=== PATIENT | male | born 1950 | race Caucasian/White ===

== ENCOUNTER 2018-06-22 14:49 | Emergency (ER) | payer OTHER ==
[~2018-06-22] VITALS: Ht 182.9 cm; Wt 81.6 kg
[~2018-06-22 14:49] MED LIST: ALPR1TAB7 PO; ANAS1TAB8 PO; HYDR-4354 PO; SMZ-TMP DS PO; TEST150G2 TD; [UNRECOGNIZED DRUG - OTHER]
[2018-06-22 15:25] LABS: *BILIRUBIN,URIN NEGATIVE (NEGATIVE); *BLOOD, URINE NEGATIVE (NEGATIVE); *CLARITY,URINE CLEAR (CLEAR); *COLOR,URINE YELLOW (YELLOW); *KETONES,URINE NEGATIVE (NEGATIVE); *PROTEIN,URINE NEGATIVE (NEGATIVE); *UROBILINOGEN,URINE 0.2 E.U./dl (NORMAL); LEUKOCYTE ESTERASE ,URINE NEGATIVE (NEGATIVE); NITRITE, URINE NEGATIVE (NEGATIVE); PH,URINE 5.5 (5.0-8.0); UGLUCOSE NEGATIVE (NEGATIVE)
[2018-06-22 15:33] LABS: MUCUS,URINE FEW /LPF (0-FEW); WBC,URINE 0-3 /HPF (0-3)
[2018-06-22] MEDS ORDERED: ONDANSETRON 4 MG/2 ML VIAL IV ONE (16:15)
[2018-06-22] MEDS ORDERED: IV NORMAL SALINE 1000 ML BAG IV ONE (16:15)
[2018-06-22 16:25] LABS: EOSINOPHILS # (AUTO) 0.1 K/uL (0.0-0.7); HEMATOCRIT 46.1 % (36.7-47.1); LYMPHOCYTES # (AUTO) 1.9 K/uL (20.0-40.0); MEAN CORPUSCULAR HGB CONC 36 g/dL (32.5-36.3); MONOCYTES # (AUTO) 0.4 K/uL (2.0-10.0); WHITE BLOOD COUNT (AUTO) 5.5 K/uL (3.6-10.2)
[2018-06-22 16:29] LABS: BASOPHILS % (AUTO) 0.7 % (0.0-2.0); EOSINOPHILS % (AUTO) 1.7 % (0.0-7.0); HEMOGLOBIN 16.3 g/dL (12.5-16.3); LYMPHOCYTES % (AUTO) 34.3 % (20.5-51.5); MEAN CORPUSCULAR HEMOGLOBIN 30.6 uug (23.8-33.4); MEAN CORPUSCULAR VOLUME 86.2 fL (73.0-96.2); MONOCYTES % (AUTO) 6.4 % (0.0-11.0); NEUTROPHILS # (AUTO) 3.2 K/uL (1.8-8.9); NEUTROPHILS % (AUTO) 56.9 % (38.5-71.5); PLATELET COUNT (AUTO) 175 K/uL (152-348); RED BLOOD CELL COUNT(AUTO) 5.34 MIL/uL (4.06-5.63)
[2018-06-22 16:36] LABS: POTASSIUM 4.4 mmol/L (3.5-5.1)
[2018-06-22] MEDS ORDERED: ONDANSETRON 4 MG/2 ML VIAL ONE (16:36)
[2018-06-22 16:42] LABS: BILIRUBIN,DIRECT 0.2 mg/dL (0.0-0.2); BILIRUBIN,TOTAL 1.2 mg/dL (0.2-1.0); TOTAL PROTEIN, SERUM 7.1 g/dL (6.4-8.2)
[2018-06-22] MEDS ORDERED: IV NORMAL SALINE 250 ML IV ONE (17:09)
[2018-06-22] MEDS ORDERED: NORMAL SALINE FLUSH 10 ML DISP.SYRIN ONE (17:09)
[2018-06-22] MEDS ORDERED: IOHEXOL 300MG/ML 100 ML INFUS..BTL ONE (17:09)
[2018-06-22] MEDS ORDERED: SWABABLE VALVE TRANSFER SET EA MC ONE (17:09)
--- NOTE | 2018-06-22 17:18 | NUR ---
Pt to CT, NAD noted.
--- NOTE | 2018-06-22 18:17 | NUR ---
Patient discharged to home in stable conditon. Written and verbal after care instructions given. Patient verbalizes understanding of instructions.
== END 2018-06-22 18:21 | disposition home or self-care (01) ==
LOC: ER 14:49
DX: G89.29 Other chronic pain (principal); M54.5 Low back pain; R10.9 Unspecified abdominal pain; Z88.5 Allergy status to narcotic agent; Z88.8 Allergy status to other drugs, medicaments and biological substances; Z79.2 Long term (current) use of antibiotics; Z79.899 Other long term (current) drug therapy
CPT/HCPCS: 36415; 74177; 80048; 80076; 81001; 85025; 96374; 99284; J2405; Q9967; A4663; J3490; J7030; J7050

== ENCOUNTER 2020-06-14 15:14 | Emergency (ER) | payer OTHER ==
[~2020-06-14] VITALS: Ht 180.3 cm; Wt 86.2 kg
[~2020-06-14 15:14] MED LIST changes: -ANAS1TAB8 PO; -SMZ-TMP DS PO; -[UNRECOGNIZED DRUG - OTHER]
--- NOTE | 2020-06-14 15:26 | NUR ---
Pt c/o midline ABD pain x 2 weeks, denies n/v/d but has softer stool. Pt taking prilosec OTC and getting small patches of redness and brownish raised spots. Also gets occasional bags and circles under his eyes. Pt denies CP, SOB, dizziness, n/v, no other complaints, no distress noted. Addendum: 06/14/20 at 1530 by ALANIS Pt also c/o frothy urine.
[2020-06-14 15:58] LABS: *BILIRUBIN,URIN NEGATIVE (NEGATIVE); *CLARITY,URINE CLEAR (CLEAR); *COLOR,URINE YELLOW (YELLOW); *KETONES,URINE NEGATIVE (NEGATIVE); *UROBILINOGEN,URINE 0.2 E.U./dl (NORMAL); LEUKOCYTE ESTERASE ,URINE NEGATIVE (NEGATIVE); NITRITE, URINE NEGATIVE (NEGATIVE); PH,URINE 5.5 (5.0-8.0); UGLUCOSE NEGATIVE (NEGATIVE)
[2020-06-14 16:02] LABS: BASOPHILS % (AUTO) 0.5 % (0.0-2.0); EOSINOPHILS # (AUTO) 0.1 K/uL (0.0-0.7); EOSINOPHILS % (AUTO) 1.3 % (0.0-7.0); HEMATOCRIT 47.6 % (36.7-47.1); HEMOGLOBIN 15.8 g/dL (12.5-16.3); LYMPHOCYTES # (AUTO) 1.9 K/uL (20.0-40.0); LYMPHOCYTES % (AUTO) 26.2 % (20.5-51.5); MEAN CORPUSCULAR HEMOGLOBIN 29.6 uug (23.8-33.4); MEAN CORPUSCULAR HGB CONC 33 g/dL (32.5-36.3); MEAN CORPUSCULAR VOLUME 89.1 fL (73.0-96.2); MONOCYTES # (AUTO) 0.6 K/uL (2.0-10.0); MONOCYTES % (AUTO) 7.9 % (0.0-11.0); NEUTROPHILS # (AUTO) 4.7 K/uL (1.8-8.9); NEUTROPHILS % (AUTO) 64.1 % (38.5-71.5); PLATELET COUNT (AUTO) 185 K/uL (152-348); RED BLOOD CELL COUNT(AUTO) 5.34 MIL/uL (4.06-5.63); WHITE BLOOD COUNT (AUTO) 7.3 K/uL (3.6-10.2)
[2020-06-14 16:02] LABS: *BLOOD, URINE TRACE INTACT (NEGATIVE)
[2020-06-14 16:10] LABS: CREATININE 0.9 mg/dL (0.6-1.3); POTASSIUM 4.1 mmol/L (3.5-5.1)
[2020-06-14 16:16] LABS: BILIRUBIN,DIRECT 0.4 mg/dL (0.0-0.2); BILIRUBIN,TOTAL 2.2 mg/dL (0.2-1.0)
--- NOTE | 2020-06-14 17:08 | NUR ---
Gave pt d/c instructions, pt verbalized understanding.
[2020-06-14 20:11] LABS: BACTERIA,URINE NONE SEEN /HPF (NONE SEEN); RBC,URINE 0-3 /HPF (0-3); SQUAMOUS EPITHELIAL CELL,UR NONE SEEN /HPF (NONE SEEN); WBC,URINE 0-3 /HPF (0-3)
== END 2020-06-14 17:13 | disposition home or self-care (01) ==
LOC: ER 15:14
DX: R10.11 Right upper quadrant pain (principal); R94.5 Abnormal results of liver function studies; Z96.651 Presence of right artificial knee joint; Z98.1 Arthrodesis status; N64.59 Other signs and symptoms in breast
CPT/HCPCS: 36415; 76642; 83690; 85025; A4663

== ENCOUNTER 2020-08-09 18:10 | Inpatient (IN) | payer MEDICARE ==
[~2020-08-09] VITALS: Ht 180.3 cm; Wt 89.4 kg
[2020-08-09] MEDS ORDERED: ACET-2605 PO (18:20)
[2020-08-09] MEDS ORDERED: HYDR-3980 PO (18:25)
[2020-08-09] MEDS ORDERED: ALPR1TAB7 PO (18:25)
[2020-08-09] MEDS ORDERED: TEST75GE TD (18:25)
[2020-08-09] MEDS ORDERED: HYDROMORPHONE 1 MG/1 ML DISP.SYRIN IV ONE (19:00)
[2020-08-09] MEDS ORDERED: ONDANSETRON 4 MG/2 ML VIAL IV ONE (19:00)
[2020-08-09] MEDS ORDERED: IV NORMAL SALINE 1000 ML BAG IV ONE (19:00)
--- NOTE | 2020-08-09 19:00 | NUR ---
RECEIVED PATIENT AWAKE , IV NS RUNNING BOLUS , NO DISTRESS
[2020-08-09 19:01] LABS: *BILIRUBIN,URIN NEGATIVE (NEGATIVE); *BLOOD, URINE NEGATIVE (NEGATIVE); *CLARITY,URINE CLEAR (CLEAR); *COLOR,URINE YELLOW (YELLOW); *KETONES,URINE NEGATIVE (NEGATIVE); *UROBILINOGEN,URINE 0.2 E.U./dl (NORMAL); LEUKOCYTE ESTERASE ,URINE NEGATIVE (NEGATIVE); NITRITE, URINE NEGATIVE (NEGATIVE); UGLUCOSE NEGATIVE (NEGATIVE)
[2020-08-09 19:12] LABS: BASOPHILS % (AUTO) 0.2 % (0.0-2.0); EOSINOPHILS % (AUTO) 0.3 % (0.0-7.0); HEMOGLOBIN 15.8 g/dL (12.5-16.3); LYMPHOCYTES # (AUTO) 1.4 K/uL (20.0-40.0); LYMPHOCYTES % (AUTO) 11.4 % (20.5-51.5); MEAN CORPUSCULAR HEMOGLOBIN 30.5 uug (23.8-33.4); MEAN CORPUSCULAR HGB CONC 34 g/dL (32.5-36.3); MEAN CORPUSCULAR VOLUME 88.5 fL (73.0-96.2); MONOCYTES # (AUTO) 0.6 K/uL (2.0-10.0); MONOCYTES % (AUTO) 5.2 % (0.0-11.0); NEUTROPHILS % (AUTO) 82.9 % (38.5-71.5); PLATELET COUNT (AUTO) 162 K/uL (152-348); WHITE BLOOD COUNT (AUTO) 12.1 K/uL (3.6-10.2)
[2020-08-09 19:19] LABS: CREATININE 1.2 mg/dL (0.6-1.3)
[2020-08-09 19:25] LABS: BILIRUBIN,DIRECT 0.3 mg/dL (0.0-0.2); BILIRUBIN,TOTAL 2.9 mg/dL (0.2-1.0); TOTAL PROTEIN, SERUM 6.7 g/dL (6.4-8.2)
[2020-08-09] MEDS ORDERED: HYDROMORPHONE 2 MG/1 ML DISP.SYRIN ONE (19:42)
[2020-08-09] MEDS ORDERED: ONDANSETRON 4 MG/2 ML VIAL ONE (19:42)
[2020-08-09] MEDS ORDERED: SWABABLE VALVE TRANSFER SET EA MC ONE (19:48)
[2020-08-09] MEDS ORDERED: IV NORMAL SALINE 250 ML IV ONE (19:48)
[2020-08-09] MEDS ORDERED: IOHEXOL 350 100 ML INFUS..BTL ONE (19:48)
--- NOTE | 2020-08-09 19:54 | NUR ---
PATIENT WAS TAKEN TO CT , DENIES PAIN OR DISTRESS AT THIS TIME
--- NOTE | 2020-08-09 20:03 | NUR ---
PATIENT IS STILL OUT TO CT , EKG NOT DONE YET
--- NOTE | 2020-08-09 20:18 | NUR ---
PATIENT BACK FROM CT , NO DISTRESS
--- NOTE | 2020-08-09 20:57 | NUR ---
ER MD spoke to surgery carton folder, Magdy. Patient to be admitted to tele and will have surgery tomorrow
--- NOTE | 2020-08-09 20:58 | NUR ---
Panel call to [facility] PLaced by DAIANA RIVERA
[2020-08-09] MEDS ORDERED: METRONIDAZOLE 500 MG/NS 100 ML PIGGYBACK IV ONE (21:00)
[2020-08-09] MEDS ORDERED: CEFTRIAXONE 1 G in IV DEXTROSE 5% 50 ML IV ONE (21:00)
--- NOTE | 2020-08-09 21:00 | NUR ---
DR BRICEÑO AT BEDSIDE TO EXPLAIN RESULTS OF CT SCAN
--- NOTE | 2020-08-09 21:03 | NUR ---
Admitting room 315 Tele
[2020-08-09] MEDS ORDERED: METRONIDAZOLE 500 MG/NS 100ML 100 ML IV ONE (21:06)
[2020-08-09] MEDS ORDERED: CEFTRIAXONE /D5W 50ML IVPB **ER PYXIS IV ONE (21:06)
[2020-08-09] MEDS ORDERED: Z GUARD REMEDY PASTE 57 GM TUBE TOP PRN (21:15)
[2020-08-09] MEDS ORDERED: ONDANSETRON 4 MG/2 ML VIAL IV PRN (21:15)
--- NOTE | 2020-08-09 21:26 | NUR ---
Report to Shanta CONTRERAS on tele Pt. admitted to tele under Dermick/Magdy Belongs List completed
--- NOTE | 2020-08-09 21:35 | NUR ---
Judith schuster in [facility] - 08/09/20 at 2155 by MANINDER MD An at patient bedside.
[2020-08-09] MEDS ORDERED: PIPERACILLIN SODIUM/TAZOBACTAM 4.5 G in IV DEXTROSE 5% 50 ML IV SCH (22:00)
--- NOTE | 2020-08-09 22:15 | NUR ---
Admitted a 69 years old patient with Dx of Perforated Colon. Pt AAOx4. In no acute distress. Denies any SOB. Mild abdominal pain at this time and tolerable without the need of pain medication at this time. IV site on right FA and left AC intact and patent. NPO status. NSR on tele at79/min. Routine admission care done. Plan of care initiated. Safety measure initiated and call vasquez within reached.
[2020-08-09] MEDS: IV NS 1000 ML 1,000 ML IV PRN (22:25)
[2020-08-09] MEDS ORDERED: LORAZEPAM 2 MG/1 ML VIAL IV ONE (23:00)
[2020-08-09] MEDS ORDERED: PIPERACILLIN/TAZO 4.5 GM VIAL IV ONE (23:39)
[2020-08-09] MEDS: PIPERACILLIN SODIUM/TAZOBACTAM 4.5 G in IV DEXTROSE 5% 50 ML IV SCH (23:50)
[2020-08-10 00:07] VITALS: BP 130/64
[2020-08-10] MEDS: MORPHINE SULFATE 2 MG/1 ML DISP.SYRIN IV PRN ×2 (01:13→05:49)
--- NOTE | 2020-08-10 01:50 | NUR ---
IC obtained from pt. for exploratory laparotomy. Patient procedure is scheduled for 729 per Pelt Dropper Caty.
[2020-08-10 04:00] VITALS: BP 103/53
[2020-08-10] MEDS: PIPERACILLIN SODIUM/TAZOBACTAM 4.5 G in IV DEXTROSE 5% 50 ML IV SCH (05:14)
--- NOTE | 2020-08-10 06:15 | NUR ---
RN Tayler from OR called, report given regarding patient current condition.
[2020-08-10] MEDS ORDERED: BUPIVACAINE 0.25% 30 ML VIAL ONE (06:34)
--- NOTE | 2020-08-10 06:48 | NUR ---
Pt remains AAOx4. In no acute distress. Morphine 1mg via IV given q4 hours PRN for complain of pain and effective. IVF infusing. No adverse effect noted from IV ABX. Maintained on NPO. Needs attended to and met. Safety measure maintained and call vasquez within reached. Awaiting for surgery today.
--- NOTE | 2020-08-10 07:00 | NUR ---
Patient picked up by 2 nurse and taken to OR for surgery (Ex lap).
[2020-08-10] MEDS ORDERED: POLYMYXIN B SULFATE 500,000 UNITS, BACITRACIN 50,000 UNITS, NORMAL SALINE 20 ML MC ONE (07:15)
[2020-08-10] MEDS ORDERED: MIDAZOLAM HCL 10 MG/2 ML VIAL ONE (07:26)
[2020-08-10 07:28] LABS: BILIRUBIN,TOTAL 3.3 mg/dL (0.2-1.0); CREATININE 1.1 mg/dL (0.6-1.3); MAGNESIUM 1.7 mg/dL (1.8-2.4); PHOSPHOROUS 3.7 mg/dL (2.5-4.9); POTASSIUM 3.8 mmol/L (3.5-5.1); TOTAL PROTEIN, SERUM 5.6 g/dL (6.4-8.2)
[2020-08-10 07:37] LABS: BASOPHILS % (AUTO) 0.2 % (0.0-2.0); EOSINOPHILS % (AUTO) 0.1 % (0.0-7.0); HEMOGLOBIN 14.1 g/dL (12.5-16.3); LYMPHOCYTES # (AUTO) 1.1 K/uL (20.0-40.0); LYMPHOCYTES % (AUTO) 15.2 % (20.5-51.5); MEAN CORPUSCULAR HEMOGLOBIN 30.3 uug (23.8-33.4); MEAN CORPUSCULAR HGB CONC 34 g/dL (32.5-36.3); MEAN CORPUSCULAR VOLUME 90.1 fL (73.0-96.2); MONOCYTES # (AUTO) 0.4 K/uL (2.0-10.0); MONOCYTES % (AUTO) 5.9 % (0.0-11.0); NEUTROPHILS # (AUTO) 5.7 K/uL (1.8-8.9); NEUTROPHILS % (AUTO) 78.6 % (38.5-71.5); PLATELET COUNT (AUTO) 147 K/uL (152-348); RED BLOOD CELL COUNT(AUTO) 4.65 MIL/uL (4.06-5.63); WHITE BLOOD COUNT (AUTO) 7.2 K/uL (3.6-10.2)
[2020-08-10] MEDS ORDERED: METRONIDAZOLE 500 MG/NS 100 ML PIGGYBACK IV ONE (07:58)
[2020-08-10] MEDS: PANTOPRAZOLE SODIUM 40 MG VIAL IV SCH (09:00)
[2020-08-10] MEDS ORDERED: KETOROLAC TROMETHAMINE 30 MG INJ ONE (09:55)
[2020-08-10] MEDS ORDERED: FENTANYL CITRATE 100 MCG/2 ML AMPUL ONE (09:55)
[2020-08-10] MEDS ORDERED: MORPHINE SULFATE 2 MG/1 ML DISP.SYRIN IV PRN (11:15)
--- NOTE | 2020-08-10 11:15 | NUR ---
PATIENT RETURNED POST-SURGERY. AAOx4. COMPLAINTS OF PAIN, GIVEN PRN PAIN MEDICATION. VSS. INCISION SITE CLEAN, DRY AND INTACT. CHAHAL CATHETER DRAINING AND PATENT. IV FLUIDS STARTED PER ORDER. WILL CONTINUE TO MONITOR.
[2020-08-10] MEDS: MAGNESIUM SULFATE/D5W 100 ML IV SCH ×2 (11:28→12:24)
[2020-08-10] MEDS: IV NS 1000 ML 1,000 ML IV PRN ×2 (11:30→23:29)
[2020-08-10 11:51] VITALS: BP 129/59
[2020-08-10] MEDS: METOCLOPRAMIDE HCL 10 MG/2 ML VIAL IV SCH ×3 (12:13→23:20)
--- NOTE | 2020-08-10 13:26 | NUR ---
PER PATIENT REQUEST, CHAHAL CATHETER DISCONTINUED. WILL MONITOR IF PATIENT IS ABLE TO VOID. MD AWARE.
[2020-08-10] MEDS ORDERED: DEXAMETHASONE SOD PHOSPHATE 4 MG INJ IV ONE (13:47)
[2020-08-10] MEDS ORDERED: CEFAZOLIN 1 G VIAL MC ONE (13:47)
[2020-08-10] MEDS ORDERED: GLYCOPYRROLATE 0.2 MG/ML VIAL IM ONE (13:47)
[2020-08-10] MEDS ORDERED: PROPOFOL 200 MG/20 ML BOTTLE IV ONE (13:47)
[2020-08-10] MEDS ORDERED: ONDANSETRON 4 MG/2 ML VIAL IV ONE (13:47)
[2020-08-10] MEDS ORDERED: LIDOCAINE-MPF 2% 5 ML VIAL MC ONE (13:47)
[2020-08-10] MEDS ORDERED: VECURONIUM BROMIDE 10 MG VIAL IV ONE ×2 (13:47)
[2020-08-10] MEDS ORDERED: SEVOFLURANE 250 ML BOTTLE IH ONE (13:47)
[2020-08-10] MEDS ORDERED: PIPERACILLIN SODIUM/TAZOBACTAM 3.37 G in IV DEXTROSE 5% 100 ML IV SCH (14:00)
[2020-08-10] MEDS: CEFAZOLIN 1 G in IV DEXTROSE 5% 50 ML IV SCH ×2 (15:11→22:30)
[2020-08-10 16:00] VITALS: BP 134/64
[2020-08-10] MEDS: METRONIDAZOLE 500 MG/NS 100ML 500 MG in PREMIXED 1 EACH IV SCH ×2 (16:09→23:20)
[2020-08-10] MEDS: HYDROMORPHONE 2 MG/1 ML DISP.SYRIN IV PRN ×2 (17:23→22:12)
[2020-08-10 20:00] VITALS: BP 115/60
[2020-08-11 00:25] VITALS: BP 107/53
[2020-08-11] MEDS: HYDROMORPHONE 2 MG/1 ML DISP.SYRIN IV PRN ×2 (02:56→06:38)
[2020-08-11 04:00] VITALS: BP 137/66
[2020-08-11] MEDS: METOCLOPRAMIDE HCL 10 MG/2 ML VIAL IV SCH ×5 (05:27→23:46)
--- NOTE | 2020-08-11 06:18 | NUR ---
Pt stable throughout the shift. No episode of CP. Denies any acute distress/SOB. on Room air. Safety measures in place. Call light within reach. Will endorse to oncoming nurse. Addendum: 08/11/20 at 0644 by MUMTAZ RICHTER RN wrong patient
--- NOTE | 2020-08-11 06:44 | NUR ---
Pt stable throughout the shift. on 2L NC, denies SOB. NSR, 98 on tele monitor. Abdominal dressing/site is intact and dry. On PRN Dilaudid Q3H for pain. Pain managed effectively. Urine output normal. Safety measures in place. Will endorse to oncoming nurse.
[2020-08-11] MEDS: ENOXAPARIN SODIUM 40 MG/0.4 ML DISP.SYRIN SQ SCH (07:55)
[2020-08-11] MEDS: PANTOPRAZOLE SODIUM 40 MG VIAL IV SCH (08:13)
[2020-08-11 08:20] VITALS: BP 128/65
[2020-08-11 09:03] LABS: BASOPHILS % (AUTO) 0.3 % (0.0-2.0); HEMOGLOBIN 12.7 g/dL (12.5-16.3); LYMPHOCYTES # (AUTO) 0.5 K/uL (20.0-40.0); LYMPHOCYTES % (AUTO) 5.8 % (20.5-51.5); MEAN CORPUSCULAR HEMOGLOBIN 30.8 uug (23.8-33.4); MEAN CORPUSCULAR HGB CONC 34 g/dL (32.5-36.3); MEAN CORPUSCULAR VOLUME 89.9 fL (73.0-96.2); MONOCYTES # (AUTO) 0.9 K/uL (2.0-10.0); MONOCYTES % (AUTO) 10.1 % (0.0-11.0); NEUTROPHILS # (AUTO) 7.8 K/uL (1.8-8.9); NEUTROPHILS % (AUTO) 83.8 % (38.5-71.5); PLATELET COUNT (AUTO) 132 K/uL (152-348); RED BLOOD CELL COUNT(AUTO) 4.12 MIL/uL (4.06-5.63); WHITE BLOOD COUNT (AUTO) 9.3 K/uL (3.6-10.2)
[2020-08-11 09:13] LABS: MAGNESIUM 1.9 mg/dL (1.8-2.4); PHOSPHOROUS 2.5 mg/dL (2.5-4.9); POTASSIUM 3.6 mmol/L (3.5-5.1)
[2020-08-11] MEDS: IV NS 1000 ML 1,000 ML IV PRN (09:47)
[2020-08-11] MEDS: MORPHINE SULFATE 2 MG/1 ML DISP.SYRIN IV PRN ×2 (09:51→16:49)
--- NOTE | 2020-08-11 10:00 | NUR ---
pt seen by dr patel new orders received noted and carried out
[2020-08-11] MEDS ORDERED: BISACODYL 5 MG TABLET.DR PO ONE (10:15)
[2020-08-11 11:00] VITALS: BP 111/52
--- NOTE | 2020-08-11 15:23 | NUR ---
pt walk in the hallway tolerated well
[2020-08-11 16:00] VITALS: BP 133/76
[2020-08-11 19:47] VITALS: BP 153/75
--- NOTE | 2020-08-11 20:01 | NUR ---
Pt is feeling anxious and states that it is from the Morphine. He is requesting Ativan and Buhl for pain. Dr An okayed meds. Pt is allergic to codeine but states that he takes Buhl at home regularly with no reaction. is aware and okayed meds.
[2020-08-11] MEDS: LORAZEPAM 2 MG/1 ML VIAL IV PRN (20:25)
[2020-08-11] MEDS: HYDROCODONE/APAP 10-325 MG TABLET PO PRN (21:13)
[2020-08-12] MEDS: LORAZEPAM 2 MG/1 ML VIAL IV PRN ×3 (01:41→23:22)
[2020-08-12] MEDS: IV NS 1000 ML 1,000 ML IV PRN (01:41)
[2020-08-12] MEDS: HYDROCODONE/APAP 10-325 MG TABLET PO PRN ×3 (03:32→16:44)
[2020-08-12 04:26] VITALS: BP 107/43
[2020-08-12] MEDS: METOCLOPRAMIDE HCL 10 MG/2 ML VIAL IV SCH ×4 (06:00→23:21)
--- NOTE | 2020-08-12 06:29 | NUR ---
Pt slept intermittently throughout the night. Denies pain or SOB at this time. Pt is alert and is able to make needs known. C/o back pain around 0330H and was provided with hot packs per pts request and [place]. Pt tolerated well. IV is infusing with no complications. Bed is locked and in lowest position, call light is within reach. No other issues or concerns at this time. Will endorse to day shift.
[2020-08-12 08:01] VITALS: BP 123/64
[2020-08-12] MEDS: ENOXAPARIN SODIUM 40 MG/0.4 ML DISP.SYRIN SQ SCH (08:08)
[2020-08-12] MEDS: PANTOPRAZOLE SODIUM 40 MG VIAL IV SCH (08:08)
[2020-08-12 11:26] VITALS: BP 124/59
--- NOTE | 2020-08-12 13:19 | NUR ---
FRESH BLOOD NOTED IN THE STOOL MD MADE AWARE
[2020-08-12 15:40] VITALS: BP 142/78
--- NOTE | 2020-08-12 19:30 | NUR ---
RECEIVED PT AWAKE, ALERT AND ORIENTEDX4. PT IN NO ACUTE DISTRESS. PT IV INTACT. SAFETY AND COMFORT PROVIDED. WILL CONTINUE TO MONITOR.
[2020-08-12 20:37] VITALS: BP 130/75
[2020-08-13] MEDS: HYDROCODONE/APAP 10-325 MG TABLET PO PRN (01:23)
[2020-08-13 04:30] VITALS: BP 147/80
[2020-08-13] MEDS: METOCLOPRAMIDE HCL 10 MG/2 ML VIAL IV SCH ×2 (05:33→11:44)
[2020-08-13] MEDS: LORAZEPAM 2 MG/1 ML VIAL IV PRN (06:17)
--- NOTE | 2020-08-13 06:21 | NUR ---
PT SLEPT INTERMITTENTLY. PT IN NO ACUTE DISTRESS. IV INTACT. PRESCRIBED MEDICATION GIVEN AND PT TOLERATED IT WELL. ATIVAN 1MG PRN GIVEN AT 2322H and 0617h PER PT STATING HE FELT ANXIOUS. AT 0123H NORCO GIVEN FOR PAIN. PT TOLERATED IT WELL. SAFETY AND COMFORT PROVIDED. WILL ENDORSE TO INCOMING NURSE FOR CONTINUITY OF CARE.
[2020-08-13] MEDS: PANTOPRAZOLE SODIUM 40 MG TABLET.DR PO SCH (07:13)
[2020-08-13 10:54] LABS: BASOPHILS % (AUTO) 0.5 % (0.0-2.0); EOSINOPHILS # (AUTO) 0.2 K/uL (0.0-0.7); EOSINOPHILS % (AUTO) 2.8 % (0.0-7.0); HEMATOCRIT 35.6 % (36.7-47.1); HEMOGLOBIN 12.3 g/dL (12.5-16.3); LYMPHOCYTES # (AUTO) 0.9 K/uL (20.0-40.0); MEAN CORPUSCULAR HGB CONC 35 g/dL (32.5-36.3); MEAN CORPUSCULAR VOLUME 89.8 fL (73.0-96.2); MONOCYTES # (AUTO) 0.8 K/uL (2.0-10.0); MONOCYTES % (AUTO) 9.8 % (0.0-11.0); NEUTROPHILS # (AUTO) 5.9 K/uL (1.8-8.9); NEUTROPHILS % (AUTO) 74.9 % (38.5-71.5); PLATELET COUNT (AUTO) 149 K/uL (152-348); RED BLOOD CELL COUNT(AUTO) 3.96 MIL/uL (4.06-5.63); WHITE BLOOD COUNT (AUTO) 7.8 K/uL (3.6-10.2)
[2020-08-13 11:05] LABS: CREATININE 1.1 mg/dL (0.6-1.3); MAGNESIUM 1.7 mg/dL (1.8-2.4); PHOSPHOROUS 2.2 mg/dL (2.5-4.9)
[2020-08-13 11:40] VITALS: BP 138/73
--- NOTE | 2020-08-13 13:00 | NUR ---
PATIENT IV INFILTRATED AND REMOVED. PER PATIENT REQUEST, IV MEDICATIONS SWITCHED TO PO. WILL REINSERT IV IF NEEDED. WILL CONTINUE TO MONITOR.
[2020-08-13] MEDS ORDERED: MAGNESIUM SULFATE/D5W 100 ML IV SCH (13:45)
[2020-08-13] MEDS ORDERED: NEUTRA PHOS PACKET PO ONE (13:45)
[2020-08-13] MEDS ORDERED: MAGNESIUM OXIDE 400 MG TABLET PO ONE (13:45)
[2020-08-13] MEDS: POTASSIUM CHLORIDE 20 MEQ TAB.PRT.SR PO SCH ×3 (13:48→15:58)
[2020-08-13] MEDS ORDERED: ONDANSETRON ODT 4 MG TAB.RAPDIS SL PRN (14:30)
[2020-08-13 15:16] VITALS: BP 146/60
[2020-08-13] MEDS: BENZOCAINE/MENTH/CETYLPYRD LOZENGE MM PRN ×2 (15:58→21:41)
[2020-08-13] MEDS: METOCLOPRAMIDE HCL 10 MG TABLET PO SCH ×2 (17:25→23:42)
--- NOTE | 2020-08-13 19:30 | NUR ---
RECEIVED PT AWAKE, ALERT AND ORIENTEDX4. PT IN NO ACUTE DISTRESS. PT IV INTACT. SAFETY AND COMFORT PROVIDED. WILL CONTINUE TO MONITOR.
[2020-08-13 20:00] VITALS: BP 136/70
--- NOTE | 2020-08-13 20:34 | NUR ---
PT REQUESTING FOR TYLENOL MEDICATION. NOTIFY CLAIM TAKER. DR. RHODES ORDERED TYLENOL ES 250 MG Q6HPRN AND NORCO 5-325 Q12H PRN . STOPPED THE NORCO 10-325MG.
[2020-08-13] MEDS: ACETAMINOPHEN ES 500 MG TABLET PO PRN (21:07)
[2020-08-13] MEDS: HYDROCODONE/APAP 5-325MG TABLET PO PRN (21:47)
[2020-08-13] MEDS: LORAZEPAM 1 MG TABLET PO PRN (23:41)
--- NOTE | 2020-08-13 23:42 | NUR ---
PT REFUSED TO TAKE HIS REGLAN. HE SAID HE IS POOPING A LOT. PT TOOK HIS ATIVAN PRN .
[2020-08-14 05:00] VITALS: BP 145/80
[2020-08-14] MEDS: METOCLOPRAMIDE HCL 10 MG TABLET PO SCH ×4 (06:00→23:13)
--- NOTE | 2020-08-14 06:10 | NUR ---
PT SLEPT INTERMITTENTLY. PT IN NO ACUTE DISTRESS.PRESCRIBED MEDICATION GIVEN AND PT TOLERATED IT WELL. PT GIVEN ATIVAN PRN AT 2341H FOR ANXIETY. AT 2147H NORCO PRN GIVEN FOR PAIN AND AT 2107H TYLENOL ES PRN GIVEN. SAFETY AND COMFORT PROVIDED. ALL NEEDS ARE MET. WILL ENDORSE TO INCOMING NURSE FOR CONTINUITY OF CARE.
[2020-08-14] MEDS: PANTOPRAZOLE SODIUM 40 MG TABLET.DR PO SCH (06:15)
--- NOTE | 2020-08-14 06:39 | NUR ---
OBSERVED BLOOD STREAKS IN HIS STOOL. PT IN NO ACUTE DISTRESS.
[2020-08-14 06:46] LABS: BASOPHILS % (AUTO) 0.5 % (0.0-2.0); EOSINOPHILS # (AUTO) 0.2 K/uL (0.0-0.7); EOSINOPHILS % (AUTO) 3.5 % (0.0-7.0); HEMATOCRIT 37.7 % (36.7-47.1); HEMOGLOBIN 12.8 g/dL (12.5-16.3); LYMPHOCYTES # (AUTO) 1.2 K/uL (20.0-40.0); LYMPHOCYTES % (AUTO) 18.6 % (20.5-51.5); MEAN CORPUSCULAR HEMOGLOBIN 30.4 uug (23.8-33.4); MEAN CORPUSCULAR HGB CONC 34 g/dL (32.5-36.3); MEAN CORPUSCULAR VOLUME 89.9 fL (73.0-96.2); MONOCYTES # (AUTO) 0.6 K/uL (2.0-10.0); NEUTROPHILS # (AUTO) 4.4 K/uL (1.8-8.9); NEUTROPHILS % (AUTO) 67.4 % (38.5-71.5); PLATELET COUNT (AUTO) 164 K/uL (152-348); WHITE BLOOD COUNT (AUTO) 6.5 K/uL (3.6-10.2)
[2020-08-14 07:15] LABS: CREATININE 0.9 mg/dL (0.6-1.3); MAGNESIUM 1.9 mg/dL (1.8-2.4); PHOSPHOROUS 3.9 mg/dL (2.5-4.9); POTASSIUM 3.3 mmol/L (3.5-5.1)
--- NOTE | 2020-08-14 07:30 | NUR ---
Received patient resting in bed awake alert and oriented times 4. No sign of distress noted. Patient reports multiple bowel movements. Safety precautions are in place. Will continue to monitor.
[2020-08-14 07:56] VITALS: BP 130/65
[2020-08-14] MEDS: HYDROCODONE/APAP 5-325MG TABLET PO PRN ×2 (09:25→21:29)
[2020-08-14] MEDS: BENZOCAINE/MENTH/CETYLPYRD LOZENGE MM PRN ×2 (09:53→21:55)
[2020-08-14 11:25] VITALS: BP 138/75
[2020-08-14] MEDS ORDERED: POTASSIUM CHLORIDE 20 MEQ TAB.PRT.SR PO ONE (12:00)
--- NOTE | 2020-08-14 12:00 | NUR ---
Patient is complaining if diarrhea. MD aware and SUPERVISOR BRIAR SHOP also consulted. Will continue to monitor.
[2020-08-14 15:23] VITALS: BP 149/78
--- NOTE | 2020-08-14 16:15 | NUR ---
Patient reports blood in stool. Will make MD aware.
--- NOTE | 2020-08-14 16:27 | NUR ---
Spoke with hospitalist Sourav Cruz NP with regards to patient's concern about multiple bowel movements. EXECUTIVE ASSISTANT TO PRESIDENT says he will follow up no orders given. Will continue to monitor.
--- NOTE | 2020-08-14 16:43 | NUR ---
Order for C-diff changes to stat per MD Key. Spoke with laborer vegetable farm Sharona about possibly expediting the process. She says lab is not done inhouse and metal pickling equipment operator is schedule at 1700. Will continue to monitor.
[2020-08-14] MEDS ORDERED: METRONIDAZOLE 500 MG TABLET PO SCH (17:00)
--- NOTE | 2020-08-14 17:03 | NUR ---
Made Dr Key aware about patient's concern. Telephone order for Flagyl 500mg 3 times a day empirically was given. Readback completed. Will continue to monitor.
[2020-08-14 17:22] LABS: CREATININE 1.1 mg/dL (0.6-1.3); POTASSIUM 3.6 mmol/L (3.5-5.1)
--- NOTE | 2020-08-14 18:44 | NUR ---
No sign of distress noted. Belongings list updated. Gave all medications as ordered. Dressing change complete. Safety precautions are in place. Will endorse to oncoming nurse.
--- NOTE | 2020-08-14 19:45 | NUR ---
Received pt in bed, awake, A&Ox4, verbally responsive. No s/s of respiratory distress, no pain or discomfort reported at this time. IV access intact and patent. Dressing on abdomen dry and intact. Safety measures initiated, call light within reach, will continue to monitor.
[2020-08-14 20:25] VITALS: BP 129/71
[2020-08-14] MEDS: ACETAMINOPHEN ES 500 MG TABLET PO PRN (20:50)
--- NOTE | 2020-08-14 20:50 | NUR ---
Patient complained of abdominal pain and requested for pain medication. Tylenol ES given as ordered. Pt also requested to ask the doctor if he can have his [place] 5-325 mg PO from q12hrs to q8hrs. will continue to monitor.
[2020-08-14] MEDS ORDERED: ENOXAPARIN SODIUM 40 MG/0.4 ML DISP.SYRIN SQ SCH (21:00)
--- NOTE | 2020-08-14 21:29 | NUR ---
Pt refused morphine 2mg IV for pain of 03/17. Requested [place] 5-325 mg PRN PO instead. Medication given as ordered.
--- NOTE | 2020-08-14 21:42 | NUR ---
Received an order from Dr. Rizo. [place] 5-325 mg q8 hrs PRN PO for moderate pain (Scale 4-7).
[2020-08-14] MEDS ORDERED: HYDROCODONE/APAP 5-325MG TABLET PO PRN (21:45)
[2020-08-14] MEDS: LORAZEPAM 1 MG TABLET PO PRN (23:11)
--- NOTE | 2020-08-14 23:13 | NUR ---
Pt refused Reglan saying " I don't want that medication because it makes me go"
[2020-08-15] MEDS: LORAZEPAM 1 MG TABLET PO PRN (03:11)
[2020-08-15 04:51] VITALS: BP 128/67
[2020-08-15] MEDS ORDERED: HYDROCODONE/APAP 5-325MG TABLET PO PRN (06:00)
[2020-08-15] MEDS: METOCLOPRAMIDE HCL 10 MG TABLET PO SCH (06:00)
[2020-08-15] MEDS: PANTOPRAZOLE SODIUM 40 MG TABLET.DR PO SCH (06:10)
--- NOTE | 2020-08-15 06:53 | NUR ---
Pt in bed, awake and verbally responsive, slept intermittently the whole night. No s/s of respiratory distress. Reported pain this morning, PRN pain medication given as ordered. Still refused Reglan medication. Original abdominal dressing is dry and intact, no s/s of infection on the surrounding area. No order yet to change dressing. will endorse to receiving nurse to follow up regarding dressing change. All needs attended.
[2020-08-15 06:55] LABS: BASOPHILS % (AUTO) 0.4 % (0.0-2.0); EOSINOPHILS # (AUTO) 0.3 K/uL (0.0-0.7); EOSINOPHILS % (AUTO) 4.5 % (0.0-7.0); HEMATOCRIT 37.3 % (36.7-47.1); HEMOGLOBIN 12.6 g/dL (12.5-16.3); LYMPHOCYTES # (AUTO) 1.5 K/uL (20.0-40.0); LYMPHOCYTES % (AUTO) 22.2 % (20.5-51.5); MEAN CORPUSCULAR HEMOGLOBIN 30.3 uug (23.8-33.4); MEAN CORPUSCULAR HGB CONC 34 g/dL (32.5-36.3); MEAN CORPUSCULAR VOLUME 89.3 fL (73.0-96.2); MONOCYTES # (AUTO) 0.7 K/uL (2.0-10.0); MONOCYTES % (AUTO) 9.8 % (0.0-11.0); NEUTROPHILS # (AUTO) 4.2 K/uL (1.8-8.9); NEUTROPHILS % (AUTO) 63.1 % (38.5-71.5); PLATELET COUNT (AUTO) 170 K/uL (152-348); RED BLOOD CELL COUNT(AUTO) 4.17 MIL/uL (4.06-5.63); WHITE BLOOD COUNT (AUTO) 6.7 K/uL (3.6-10.2)
[2020-08-15 07:29] LABS: POTASSIUM 3.9 mmol/L (3.5-5.1)
--- NOTE | 2020-08-15 07:30 | NUR ---
Pt awake alert and oriented x4, pt has abdominal incision, dressed with abdominal pad, dry, clean and intact. pt on RA without signs of distress, not complaints of pain at this time. Pt has BRP, IV access on the right upper arm midline, saline lock. Bed in low and locked position, call light within reach, safety precautions in place, will continue with plan of care.
[2020-08-15 08:00] VITALS: BP 118/63
[2020-08-15] MEDS ORDERED: METRONIDAZOLE 500 MG TABLET PO SCH (08:16)
[2020-08-15] MEDS: BENZOCAINE/MENTH/CETYLPYRD LOZENGE MM PRN (09:14)
[2020-08-15] MEDS ORDERED: METR-147 PO (11:11)
[2020-08-15] MEDS ORDERED: TEMA15CA PO (11:11)
--- NOTE | 2020-08-15 12:25 | NUR ---
Pt discharged home with all belongings, valuables and paperwork. Pt left via private car accompanied by girlfriend, Nessa. Pictures of abdominal wound were taken, wound cleaned, well approximated and dry, new dressing applied. ID band and IV removed prior to discharge. Vitals are temp 98.7, pulse 64, resp rate 18, BP 118/63, 95% O2 on room air. Pt awake alert and oriented x4, pt able to walk to restroom, last BM was today 08/15/20. pt cooperative and pleasant. No signs of distress or complains of pain at this time.
[2020-08-16] MEDS ORDERED: VANC125C2 PO ×3 (10:09→13:02)
[2020-08-26] MEDS ORDERED: METH4TAB3 PO (12:22)
[2020-08-26] MEDS ORDERED: METR-147 PO (12:22)
[2020-08-26] MEDS ORDERED: RIVA10TA PO (12:22)
[2020-09-02] MEDS ORDERED: SULF1TAB48 PO (00:46)
[2020-09-02] MEDS ORDERED: CEPH500T PO (00:46)
== END 2020-08-15 12:25 | disposition home or self-care (01) | DRG 908 ==
LOC: ER 18:13 → TELE3 22:02 → MEDSURG3 08-11 09:50
PROVIDERS: ADMIT Internal Medicine; ATTEND Nurse Practitioner Family
PROC: 0DTF0ZZ Resection of Right Large Intestine, Open Approach (ICD-10-PCS; principal; 2020-08-10)
PROC: 0DBU0ZZ Excision of Omentum, Open Approach (ICD-10-PCS; 2020-08-10)
PROC: 05H633Z Insertion of Infusion Device into Left Subclavian Vein, Percutaneous Approach (ICD-10-PCS; 2020-08-15)
PROC: B547ZZA Ultrasonography of Left Subclavian Vein, Guidance (ICD-10-PCS; 2020-08-15)
DX: K91.71 Accidental puncture and laceration of a digestive system organ or structure during a digestive system procedure (principal); A04.72 Enterocolitis due to Clostridium difficile, not specified as recurrent; Y83.8 Other surgical procedures as the cause of abnormal reaction of the patient, or of later complication, without mention of misadventure at the time of the procedure; Y92.89 Other specified places as the place of occurrence of the external cause; Z96.651 Presence of right artificial knee joint; Z98.1 Arthrodesis status; Z20.822 Contact with and (suspected) exposure to COVID-19; K76.0 Fatty (change of) liver, not elsewhere classified; Y73.8 Miscellaneous gastroenterology and urology devices associated with adverse incidents, not elsewhere classified; K66.8 Other specified disorders of peritoneum; R19.09 Other intra-abdominal and pelvic swelling, mass and lump; K57.30 Diverticulosis of large intestine without perforation or abscess without bleeding
CPT/HCPCS: 36415; 70030-TC; 71275; 83605; 83690; 83735; 84100; 85025; 85610; 87086; 93005; A4649; A4663; A9150; C9113; G0378; J0690; J0696; J1100; J1170; J1650; J1885; J2060; J2250; J2270; J2405; J2543; J2765; J3010; J3475; J3490; J7030; J7050; J7060; J8597; Q9967; U0003

== ENCOUNTER 2020-08-22 11:11 | Inpatient (IN) | payer MEDICARE ==
[~2020-08-22] VITALS: Ht 180.3 cm; Wt 82.1 kg
[~2020-08-22 11:11] MED LIST changes: -ALPR1TAB7 PO; -HYDR-4354 PO; +METR-147 PO; +TEMA15CA PO; -TEST150G2 TD; +VANC125C2 PO
--- NOTE | 2020-08-22 11:30 | NUR ---
Dr Cote is at bedside for mse.
[2020-08-22] MEDS ORDERED: HYDR-3980 PO (11:34)
[2020-08-22] MEDS ORDERED: TEST75GE TD (11:34)
[2020-08-22] MEDS ORDERED: ACET-2605 PO (11:34)
[2020-08-22] MEDS ORDERED: ALPR1TAB2 PO (11:34)
[2020-08-22] MEDS ORDERED: METRONIDAZOLE 500 MG/NS 100 ML PIGGYBACK IV ONE (11:45)
[2020-08-22] MEDS ORDERED: IV NORMAL SALINE 1000 ML BAG IV ONE (11:45)
[2020-08-22] MEDS ORDERED: ONDANSETRON 4 MG/2 ML VIAL IV ONE (11:45)
[2020-08-22] MEDS ORDERED: HYDROMORPHONE 1 MG/1 ML DISP.SYRIN IV ONE (11:45)
[2020-08-22 11:50] LABS: BASOPHILS # (AUTO) 0.1 K/uL (0.0-8.0); BASOPHILS % (AUTO) 0.5 % (0.0-2.0); EOSINOPHILS % (AUTO) 0.2 % (0.0-7.0); HEMOGLOBIN 16.3 g/dL (12.5-16.3); LYMPHOCYTES # (AUTO) 1.1 K/uL (20.0-40.0); LYMPHOCYTES % (AUTO) 8.7 % (20.5-51.5); MEAN CORPUSCULAR HEMOGLOBIN 30.9 uug (23.8-33.4); MEAN CORPUSCULAR HGB CONC 35 g/dL (32.5-36.3); MEAN CORPUSCULAR VOLUME 89.1 fL (73.0-96.2); MONOCYTES # (AUTO) 0.6 K/uL (2.0-10.0); MONOCYTES % (AUTO) 4.6 % (0.0-11.0); NEUTROPHILS # (AUTO) 10.8 K/uL (1.8-8.9); PLATELET COUNT (AUTO) 276 K/uL (152-348); RED BLOOD CELL COUNT(AUTO) 5.28 MIL/uL (4.06-5.63); WHITE BLOOD COUNT (AUTO) 12.5 K/uL (3.6-10.2)
[2020-08-22] MEDS ORDERED: METRONIDAZOLE 500 MG/NS 100ML 100 ML IV ONE (11:53)
[2020-08-22 11:58] LABS: CREATININE 1.1 mg/dL (0.6-1.3); POTASSIUM 4.2 mmol/L (3.5-5.1)
[2020-08-22] MEDS ORDERED: KETOROLAC TROMETHAMINE 30 MG INJ IVP ONE (12:00)
[2020-08-22] MEDS ORDERED: methylPREDNISolone SOD SUCC 125 MG/2 ML VIAL IV ONE (12:00)
[2020-08-22] MEDS ORDERED: diphenhydrAMINE 50 MG/1 ML VIAL IV ONE (12:00)
--- NOTE | 2020-08-22 12:00 | NUR ---
Flagyl administration Pt started on Flagyl IV as ordered, administred it with Benadryl 25 mg IV and Solumedrol 125 mg IV as ordered, due to patient stating that when he took 3 doses of Flagyl PO at home, he started developing rashes in his back, both itchy and raised. It only went away a few days after. Denies SOB and throat itchiness with it. Will monitor patient.
[2020-08-22 12:03] LABS: BILIRUBIN,DIRECT 0.4 mg/dL (0.0-0.2); BILIRUBIN,TOTAL 1.7 mg/dL (0.2-1.0); TOTAL PROTEIN, SERUM 7.5 g/dL (6.4-8.2)
[2020-08-22] MEDS ORDERED: diphenhydrAMINE 50 MG/1 ML VIAL ONE (12:04)
[2020-08-22] MEDS ORDERED: methylPREDNISolone SOD SUCC 125 MG/2 ML VIAL ONE (12:04)
[2020-08-22] MEDS ORDERED: KETOROLAC TROMETHAMINE 30 MG INJ ONE (12:04)
--- NOTE | 2020-08-22 12:15 | NUR ---
No signs of immediate adverse/allergic reactions from Flagyl IV. Patient's abdominal pain also improved to a 2/10 at this time. Pt is comfortable in bed, requested ice chips for dry mouth, addressed.
[2020-08-22 12:17] LABS: MAGNESIUM 1.8 mg/dL (1.8-2.4); PHOSPHOROUS 3.3 mg/dL (2.5-4.9)
[2020-08-22] MEDS ORDERED: IV NORMAL SALINE 250 ML IV ONE (12:30)
[2020-08-22] MEDS ORDERED: SWABABLE VALVE TRANSFER SET EA MC ONE (12:30)
[2020-08-22] MEDS ORDERED: IOHEXOL 300MG/ML 100 ML INFUS..BTL ONE (12:30)
--- NOTE | 2020-08-22 12:35 | NUR ---
Down to CT Patient is being assisted by exhibit technician down for CT scan, consent filled out. Left in stable condition, Flagyl IV finished with no signs of allergic/adverse reactions so far.
--- NOTE | 2020-08-22 12:45 | NUR ---
Back from CT Pt is back from CT, stable condition.
--- NOTE | 2020-08-22 13:09 | NUR ---
CT result back. Radiologist s/w Dr. Cote re: results of CT and now Dr. Cote is talking to Dr. Key, patient's original surgeon for consultation.
--- NOTE | 2020-08-22 13:12 | NUR ---
Paged [facility] for a panel call. Shaquille CARRASCO will call back.
[2020-08-22] MEDS ORDERED: ENOXAPARIN SODIUM 80 MG/0.8 ML DISP.SYRIN SQ ONE (13:15)
[2020-08-22 13:23] LABS: *BILIRUBIN,URIN NEGATIVE (NEGATIVE); *CLARITY,URINE CLEAR (CLEAR); *COLOR,URINE YELLOW (YELLOW); *KETONES,URINE NEGATIVE (NEGATIVE); *UROBILINOGEN,URINE 0.2 E.U./dl (NORMAL); LEUKOCYTE ESTERASE ,URINE NEGATIVE (NEGATIVE); NITRITE, URINE NEGATIVE (NEGATIVE); UGLUCOSE NEGATIVE (NEGATIVE)
[2020-08-22] MEDS ORDERED: ENOXAPARIN SODIUM 100 MG/ML DISP.SYRIN SQ ONE (13:23)
[2020-08-22 13:37] LABS: *BLOOD, URINE TRACE (NEGATIVE)
--- NOTE | 2020-08-22 13:50 | NUR ---
[facility]: Ab[facility] Pain, Post Operative, DVT. First call for report.
[2020-08-22] MEDS ORDERED: MAGNESIUM HYDROXIDE 30 ML LIQUID UDC PO PRN (14:00)
[2020-08-22] MEDS ORDERED: ACETAMINOPHEN 325 MG TABLET PO PRN (14:00)
[2020-08-22] MEDS ORDERED: Z GUARD REMEDY PASTE 57 GM TUBE TOP PRN (14:00)
[2020-08-22] MEDS ORDERED: ONDANSETRON 4 MG/2 ML VIAL IV PRN (14:00)
[2020-08-22] MEDS ORDERED: MORPHINE SULFATE 2 MG/1 ML DISP.SYRIN IV PRN (14:00)
[2020-08-22] MEDS ORDERED: ACETAMINOPHEN ES 500 MG TABLET PO PRN (14:15)
--- NOTE | 2020-08-22 14:23 | NUR ---
Admission was on hold earlier, pending insurance acceptance. Now accepted. At this time, Dr. Cote spoke with Dr. Terry of [facility] who agreed that pt should stay in [facility] for continuity of care. Attempt to give report x 2 at this time.
--- NOTE | 2020-08-22 14:38 | NUR ---
Report given to Sofy
--- NOTE | 2020-08-22 15:10 | NUR ---
Pt sent upstairs for admission via gurney. Belongings list completed, and all belongings sent to patient per list. Warm handoff to Sofy CONTRERAS. MRSA swab sent to lab.
--- NOTE | 2020-08-22 15:15 | NUR ---
PT ARRIVED ON THE FLOOR VIA GURNEY FROM THE EMERGENCY ROOM. PT IS ALERT AND ORIENTED X 4. GAIT IS STEADY. ON RA WITH SATURATION OF 98%. PT IS NOT C/O ANY ABDOMINAL PAIN OR ANY OTHER DISCOMFORTS AT THIS TIME. PATIENT HAS 9 KATHY ON HIS ABDOMINAL INCISIONS FROM PREVIOUS SURGERY WITH A LITTLE REDNESS AND PURPLE COLORING. PICTURE TAKEN AND FILE UPDATED. NOTIFIED PATIENT THAT WE NEED A STOOL SAMPLE AND PATIENT VERBALIZED UNDERSTANDING. LEFT UPPER ARM IV 18G IS INTACT AND PATENT WITH NO REDNESS OR SWELLING. PT IS POSITIVE FOR C. DIFF AND WAS PLACED ON CONTACT PRECAUTIONS. NPO AT THIS TIME. ORIENTED PATIENT TO THE ROOM AND MADE COMFORTABLE. PATIENT CALL LIGHT WITHIN REACH AND WILL CONTINUE TO MONITOR.
[2020-08-22] MEDS ORDERED: METRONIDAZOLE 500 MG/NS 100ML 500 MG in PREMIXED 1 EACH IV SCH (15:53)
[2020-08-22] MEDS: IV D5 1/2 NS 1000 ML 1,000 ML IV PRN (16:02)
[2020-08-22 16:10] VITALS: BP 145/69
[2020-08-22] MEDS: VANCOMYCIN FOR PO/GT/NG USE PO SCH ×3 (17:00→21:00)
[2020-08-22 17:02] LABS: BACTERIA,URINE MODERATE /HPF (NONE SEEN); SQUAMOUS EPITHELIAL CELL,UR FEW /HPF (NONE SEEN); WBC,URINE 0-3 /HPF (0-3)
[2020-08-22] MEDS ORDERED: TEMAZEPAM 15 MG CAPSULE PO PRN (17:15)
[2020-08-22] MEDS ORDERED: TEMAZEPAM 15 MG CAPSULE PO SCH (18:00)
--- NOTE | 2020-08-22 19:30 | NUR ---
RECEIVED PT AWAKE, ALERT AND ORIENTEDX4. PT IN NO ACUTE DISTRESS. IV INTACT. SAFETY AND COMFORT PROVIDED. PT ON CONTACT ISOLATION. C-DIFF. WILL CONTINUE TO MONITOR.
[2020-08-22 20:24] VITALS: BP 126/65
[2020-08-22] MEDS: ALPRAZOLAM 0.5 MG TABLET PO SCH (21:49)
[2020-08-22] MEDS: METRONIDAZOLE 500 MG/NS 100ML 500 MG in PREMIXED 1 EACH IV SCH (21:51)
[2020-08-22] MEDS: methylPREDNISolone SOD SUCC 40 MG/ML VIAL IV SCH (21:53)
[2020-08-22] MEDS: diphenhydrAMINE 50 MG/1 ML VIAL IV PRN (21:53)
[2020-08-22] MEDS ORDERED: diphenhydrAMINE 50 MG/1 ML VIAL IV SCH (22:00)
--- NOTE | 2020-08-22 22:00 | NUR ---
PT REFUSED HIS VANCOMYCIN PO. PT WAS SEEN BY LI CARRASCO . PT INSISTING TO GET HIS MEDICAL RECORD. CALLED FOLEY ARTIST IF WE CAN GIVE IT TO HIM. WE GAVE AUTHORIZATION REQUEST FORM TO PT TO FILL OUT AND WILL SEND TO MEDICAL RECORD IN THE MORNING TO GIVE TO HIM.
[2020-08-22] MEDS: ENOXAPARIN SODIUM 80 MG/0.8 ML DISP.SYRIN SQ SCH (22:10)
[2020-08-23] MEDS: methylPREDNISolone SOD SUCC 40 MG/ML VIAL IV SCH ×3 (05:59→21:01)
[2020-08-23] MEDS: diphenhydrAMINE 50 MG/1 ML VIAL IV PRN ×2 (05:59→21:10)
[2020-08-23] MEDS: METRONIDAZOLE 500 MG/NS 100ML 500 MG in PREMIXED 1 EACH IV SCH ×3 (05:59→21:01)
[2020-08-23] MEDS: IV D5 1/2 NS 1000 ML 1,000 ML IV PRN ×2 (06:08→21:04)
--- NOTE | 2020-08-23 06:30 | NUR ---
PT SLEPT INTERMITTENTLY. PT IN NO ACUTE DISTRESS. IV INTACT ON LEFT FOREARM 20 G. PRESCRIBED MEDICATION GIVEN AND PT TOLERATED IT WELL. PT KNOWS THAT WE NEED STOOL SAMPLE FROM HIM. SAFETY AND COMFORT PROVIDED. WILL ENDORSE TO INCOMING NURSE FOR CONTINUITY OF CARE.
[2020-08-23] MEDS: PANTOPRAZOLE SODIUM 40 MG VIAL IV SCH (08:05)
[2020-08-23 08:25] LABS: BASOPHILS % (AUTO) 0.1 % (0.0-2.0); HEMATOCRIT 42.1 % (36.7-47.1); HEMOGLOBIN 14.5 g/dL (12.5-16.3); LYMPHOCYTES # (AUTO) 0.5 K/uL (20.0-40.0); LYMPHOCYTES % (AUTO) 5.6 % (20.5-51.5); MEAN CORPUSCULAR HEMOGLOBIN 30.9 uug (23.8-33.4); MEAN CORPUSCULAR HGB CONC 35 g/dL (32.5-36.3); MEAN CORPUSCULAR VOLUME 89.5 fL (73.0-96.2); MONOCYTES # (AUTO) 0.3 K/uL (2.0-10.0); MONOCYTES % (AUTO) 3.1 % (0.0-11.0); NEUTROPHILS # (AUTO) 8.9 K/uL (1.8-8.9); NEUTROPHILS % (AUTO) 91.2 % (38.5-71.5); PLATELET COUNT (AUTO) 267 K/uL (152-348); WHITE BLOOD COUNT (AUTO) 9.8 K/uL (3.6-10.2)
[2020-08-23 08:27] VITALS: BP 129/76
[2020-08-23 08:43] LABS: BILIRUBIN,DIRECT 0.3 mg/dL (0.0-0.2); BILIRUBIN,TOTAL 1.2 mg/dL (0.2-1.0); CREATININE 1.1 mg/dL (0.6-1.3); MAGNESIUM 2.1 mg/dL (1.8-2.4); PHOSPHOROUS 3.8 mg/dL (2.5-4.9); POTASSIUM 4.6 mmol/L (3.5-5.1); TOTAL PROTEIN, SERUM 6.6 g/dL (6.4-8.2)
[2020-08-23] MEDS ORDERED: KETOROLAC TROMETHAMINE 15 MG INJ IM PRN (10:45)
[2020-08-23] MEDS: ENOXAPARIN SODIUM 80 MG/0.8 ML DISP.SYRIN SQ SCH ×2 (10:56→23:47)
[2020-08-23 11:32] VITALS: BP 137/73
[2020-08-23] MEDS: HYDROCODONE/APAP 10-325 MG TABLET PO PRN ×2 (12:44→21:00)
[2020-08-23 15:33] VITALS: BP 116/64
--- NOTE | 2020-08-23 20:00 | NUR ---
Received patient lying in bed. AAOX4. In no acute distress. Denies any pain or SOB at this time. Left FA IV site intact and patent. IVF infusing. Staple on abdominal area intact, dry and clean. Bruising around incision site visible. Needs assessed and attended to. Isolation precaution observed. Safety measure initiated and call vasquez within reached.
[2020-08-23 20:20] VITALS: BP 154/80
[2020-08-23] MEDS: ALPRAZOLAM 0.5 MG TABLET PO SCH (21:52)
[2020-08-24] MEDS: HYDROCODONE/APAP 10-325 MG TABLET PO PRN ×3 (04:10→22:30)
[2020-08-24 04:20] VITALS: BP 118/62
[2020-08-24] MEDS: METRONIDAZOLE 500 MG/NS 100ML 500 MG in PREMIXED 1 EACH IV SCH (05:01)
[2020-08-24] MEDS: methylPREDNISolone SOD SUCC 40 MG/ML VIAL IV SCH ×4 (05:01→22:35)
--- NOTE | 2020-08-24 06:00 | NUR ---
AAOX4. In no acute distress. Norcon given for pain and effective. Denies any SOB. Left FA IV site intact and patent. IVF infusing. No adverse effect noted from IV ABX. Staple on abdominal area intact, dry and clean. Needs attended to and met. Isolation precaution maintained. Safety measure maintained and call vasquez within reached.
[2020-08-24] MEDS: diphenhydrAMINE 50 MG/1 ML VIAL IV PRN (06:45)
[2020-08-24 06:51] LABS: BASOPHILS % (AUTO) 0.1 % (0.0-2.0); HEMATOCRIT 37.1 % (36.7-47.1); HEMOGLOBIN 12.7 g/dL (12.5-16.3); LYMPHOCYTES # (AUTO) 0.6 K/uL (20.0-40.0); LYMPHOCYTES % (AUTO) 4.9 % (20.5-51.5); MEAN CORPUSCULAR HEMOGLOBIN 30.7 uug (23.8-33.4); MEAN CORPUSCULAR HGB CONC 34 g/dL (32.5-36.3); MEAN CORPUSCULAR VOLUME 90.2 fL (73.0-96.2); MONOCYTES # (AUTO) 0.5 K/uL (2.0-10.0); MONOCYTES % (AUTO) 3.6 % (0.0-11.0); NEUTROPHILS # (AUTO) 12.1 K/uL (1.8-8.9); NEUTROPHILS % (AUTO) 91.4 % (38.5-71.5); PLATELET COUNT (AUTO) 252 K/uL (152-348); RED BLOOD CELL COUNT(AUTO) 4.12 MIL/uL (4.06-5.63); WHITE BLOOD COUNT (AUTO) 13.2 K/uL (3.6-10.2)
[2020-08-24 07:04] LABS: BILIRUBIN,DIRECT 0.3 mg/dL (0.0-0.2)
[2020-08-24 07:08] LABS: BILIRUBIN,DIRECT 0.2 mg/dL (0.0-0.2); BILIRUBIN,TOTAL 0.9 mg/dL (0.2-1.0); MAGNESIUM 2.2 mg/dL (1.8-2.4); PHOSPHOROUS 3.9 mg/dL (2.5-4.9); POTASSIUM 4.6 mmol/L (3.5-5.1); TOTAL PROTEIN, SERUM 5.8 g/dL (6.4-8.2)
[2020-08-24] MEDS: PANTOPRAZOLE SODIUM 40 MG VIAL IV SCH (08:04)
--- NOTE | 2020-08-24 11:03 | NUR ---
surgical vannessa removed per dr alvarez orders no bleeding and any drainage noted no any odor noted .
[2020-08-24 11:31] VITALS: BP 128/60
[2020-08-24] MEDS ORDERED: VANCOMYCIN FOR PO/GT/NG USE PO SCH (13:00)
[2020-08-24] MEDS: METRONIDAZOLE 500 MG TABLET PO SCH ×3 (13:25→22:00)
[2020-08-24] MEDS ORDERED: HEPARIN SODIUM,PORCINE 5,000 UNITS/ML VIAL IV PRN ×4 (14:00→15:45)
[2020-08-24 15:24] VITALS: BP 133/74
[2020-08-24] MEDS: HEPARIN/D5W DRIP 500 ML IV SCH ×2 (15:46→22:21)
[2020-08-24 19:56] VITALS: BP 130/76
[2020-08-24] MEDS: ALPRAZOLAM 0.5 MG TABLET PO SCH ×2 (20:25→23:51)
--- NOTE | 2020-08-24 20:27 | NUR ---
Pt is requesting to have Xanax closer to 0000H instead of 2100H.
--- NOTE | 2020-08-24 23:03 | NUR ---
At around 2200H PTT was 37.6. Heparin Drip changed to 1650 units/hr, verified by charge nurse. Bolus of 3200 units was also administered per protocol, verified by charge nurse. Pt does not have any s/s of bleeding at this time.
[2020-08-25] MEDS: HEPARIN/D5W DRIP 500 ML IV SCH ×2 (04:30→08:34)
[2020-08-25] MEDS: HYDROCODONE/APAP 10-325 MG TABLET PO PRN ×4 (04:38→22:32)
[2020-08-25 04:46] LABS: BASOPHILS % (AUTO) 0.2 % (0.0-2.0); HEMATOCRIT 40.6 % (36.7-47.1); HEMOGLOBIN 13.7 g/dL (12.5-16.3); LYMPHOCYTES # (AUTO) 0.5 K/uL (20.0-40.0); LYMPHOCYTES % (AUTO) 4.4 % (20.5-51.5); MEAN CORPUSCULAR HEMOGLOBIN 30.3 uug (23.8-33.4); MEAN CORPUSCULAR HGB CONC 34 g/dL (32.5-36.3); MEAN CORPUSCULAR VOLUME 89.7 fL (73.0-96.2); MONOCYTES # (AUTO) 0.4 K/uL (2.0-10.0); MONOCYTES % (AUTO) 3.1 % (0.0-11.0); NEUTROPHILS # (AUTO) 10.9 K/uL (1.8-8.9); NEUTROPHILS % (AUTO) 92.3 % (38.5-71.5); PLATELET COUNT (AUTO) 268 K/uL (152-348); RED BLOOD CELL COUNT(AUTO) 4.52 MIL/uL (4.06-5.63); WHITE BLOOD COUNT (AUTO) 11.8 K/uL (3.6-10.2)
[2020-08-25 04:57] LABS: BILIRUBIN,DIRECT 0.2 mg/dL (0.0-0.2); CREATININE 1.1 mg/dL (0.6-1.3); MAGNESIUM 2.1 mg/dL (1.8-2.4); PHOSPHOROUS 3.3 mg/dL (2.5-4.9); POTASSIUM 4.4 mmol/L (3.5-5.1); TOTAL PROTEIN, SERUM 6.2 g/dL (6.4-8.2)
[2020-08-25 05:35] VITALS: BP 137/77
[2020-08-25] MEDS: METRONIDAZOLE 500 MG TABLET PO SCH ×4 (06:00→21:07)
[2020-08-25] MEDS: methylPREDNISolone SOD SUCC 40 MG/ML VIAL IV SCH ×3 (06:07→21:07)
--- NOTE | 2020-08-25 06:43 | NUR ---
Pt slept intermittently throughout the night. C/o back pain periodically, given norco. Heparin dose decreased back to 1450 units/hr at 0430H, verified dose with charge nurse. No s/s of bleeding at this time. Educated patient to look out for blood in stools or urine and patient is currently denying any symptoms. Bed is locked and in lowest position, call light is within reach. No other issues or concerns at this time, will endorse to day shift.
--- NOTE | 2020-08-25 07:30 | NUR ---
received report on pt, awake alert and oriented x4, pt on room air, no signs of distress noted, pt noted he has lower back pain and was given norco. pt has a surgical abdominal wound with steristrips, clean dry and intact. pt has steady gait, BRP, IV acces on the left FA 20g with Heparin drip. Bed in low and locked position, call light within reach, safety precautions in place. Will continue with plan of care.
[2020-08-25] MEDS: PANTOPRAZOLE SODIUM 40 MG TABLET.DR PO SCH (09:45)
[2020-08-25 11:30] VITALS: BP 136/66
[2020-08-25 15:10] VITALS: BP 123/62
--- NOTE | 2020-08-25 18:57 | NUR ---
Pt awake alert and orientedx4,c/o of abdominal pain, no reports of pain at this time. Pt on room air no signs of distress noted, pt ambulatory, steady gait BRP. Regualr diet, abdominal surgical wound scar covered with steristrips, clean dry and intatc, bed in low and locked position, call light within reach, all medications given as ordered, will endorse to oncoming nurse. Addendum: 08/25/20 at 1905 by GRISELDA DELGADO RN Pt awake alert and orientedx4,c/o of abdominal pain, no reports of pain at this time. Pt on room air no signs of distress noted, pt ambulatory, steady gait BRP. Regualr diet, abdominal surgical wound scar covered with steristrips, clean dry and intact, IV access on the left FA 20g, Heparin drip, drip rate at 1450. bed in low and locked position, call light within reach, all medications given as ordered, will endorse to oncoming nurse.
--- NOTE | 2020-08-25 20:00 | NUR ---
Received patient AAOx4. No s/s of acute distress noted at this time. Pt on RA denies SOB. Abdominal dressing dry, clean, and intact, pt denies pain. Left FA IV patent and intact. Safety measures in place.
[2020-08-25 20:59] VITALS: BP 146/79
[2020-08-25] MEDS: ALPRAZOLAM 0.5 MG TABLET PO SCH (23:38)
[2020-08-26] MEDS: HEPARIN/D5W DRIP 500 ML IV SCH (02:01)
[2020-08-26] MEDS: HYDROCODONE/APAP 10-325 MG TABLET PO PRN ×2 (04:39→10:48)
[2020-08-26] MEDS: diphenhydrAMINE 50 MG/1 ML VIAL IV PRN ×2 (04:46→13:25)
[2020-08-26 05:14] VITALS: BP 155/81
[2020-08-26] MEDS: METRONIDAZOLE 500 MG TABLET PO SCH ×2 (05:52→13:25)
[2020-08-26] MEDS: methylPREDNISolone SOD SUCC 40 MG/ML VIAL IV SCH ×2 (05:52→13:25)
[2020-08-26 06:50] LABS: BASOPHILS % (AUTO) 0.1 % (0.0-2.0); HEMATOCRIT 39.7 % (36.7-47.1); HEMOGLOBIN 13.4 g/dL (12.5-16.3); LYMPHOCYTES # (AUTO) 0.7 K/uL (20.0-40.0); LYMPHOCYTES % (AUTO) 6.9 % (20.5-51.5); MEAN CORPUSCULAR HEMOGLOBIN 30.4 uug (23.8-33.4); MEAN CORPUSCULAR HGB CONC 34 g/dL (32.5-36.3); MEAN CORPUSCULAR VOLUME 90.1 fL (73.0-96.2); MONOCYTES # (AUTO) 0.5 K/uL (2.0-10.0); MONOCYTES % (AUTO) 5.5 % (0.0-11.0); NEUTROPHILS # (AUTO) 8.7 K/uL (1.8-8.9); NEUTROPHILS % (AUTO) 87.5 % (38.5-71.5); PLATELET COUNT (AUTO) 292 K/uL (152-348); RED BLOOD CELL COUNT(AUTO) 4.41 MIL/uL (4.06-5.63); WHITE BLOOD COUNT (AUTO) 9.9 K/uL (3.6-10.2)
[2020-08-26 06:59] LABS: BILIRUBIN,DIRECT 0.3 mg/dL (0.0-0.2); CREATININE 1.1 mg/dL (0.6-1.3); MAGNESIUM 2.3 mg/dL (1.8-2.4); PHOSPHOROUS 3.3 mg/dL (2.5-4.9); POTASSIUM 4.5 mmol/L (3.5-5.1)
--- NOTE | 2020-08-26 07:00 | NUR ---
Patient resting in bed. No s/s of acute distress noted at this time. Patient remains on RA denies SOB. Left FA IV patent and intact. Heparin gtt infusing at 1450 units/hr per protocol and up to date aPTT. All patient needs were met and attended to. Safety measures in place. Will endorse to oncoming shift.
[2020-08-26 07:21] LABS: BILIRUBIN,DIRECT 0.3 mg/dL (0.0-0.2); BILIRUBIN,TOTAL 0.7 mg/dL (0.2-1.0)
--- NOTE | 2020-08-26 07:30 | NUR ---
Received in bed, awake and conversant. Complained of mild back pain but refused pain medication at this time. Denies chest pain or sob. Status post right hemicolectomy after outpatient colonoscopy complicated by perforation. Abdomen slightly distended. Wound intact. Steri strips are intact and dry. Patient verbalized it looks better today than yesterday. No bleeding noted. Bed kept low and locked. Call light within reach. Will continue to monitor.
[2020-08-26] MEDS: PANTOPRAZOLE SODIUM 40 MG TABLET.DR PO SCH (08:41)
--- NOTE | 2020-08-26 10:35 | NUR ---
Patient noted with bowel movement soft and formed. No diarrhea noted. Will continue to monitor.
[2020-08-26] MEDS ORDERED: METR-147 PO (12:22)
[2020-08-26] MEDS ORDERED: RIVA10TA PO (12:22)
[2020-08-26] MEDS ORDERED: METH4TAB3 PO (12:22)
[2020-08-26 12:47] VITALS: BP 137/69
--- NOTE | 2020-08-26 15:00 | NUR ---
Patient discharged to home. Alert, oriented x 4 and able to verbalize needs. He's very excited to go home. Seen by Tangela CARRASCO and patient education regarding discharge prescriptions done and reinforced by RN. Patient verbalized understanding. Wound on abdomen intact and dry. No bleeding noted. Patient very pleased with his condition. Asked patient if he received vaccines but he refused both pneumonia and flu vaccines. Patient's belongings are inventoried by adhesive bandage making operator and confirmed by the patient. He is eager to go home. Verbalized he will make follow up appointments as needed and thankful to hospital staff. Removed IV on right forearm with minimal bleeding. Patient brought to discharge via wheelchair. Picked up by friend Antonella in stable condition.
== END 2020-08-26 14:45 | disposition home or self-care (01) | DRG 393 ==
LOC: ER 11:11 → MEDSURG3 14:51
PROVIDERS: ADMIT Registered Nurse; ATTEND Registered Nurse
DX: K55.059 Acute (reversible) ischemia of intestine, part and extent unspecified (principal); I81 Portal vein thrombosis; E87.1 Hypo-osmolality and hyponatremia; R18.8 Other ascites; F41.9 Anxiety disorder, unspecified; G89.29 Other chronic pain; Z20.822 Contact with and (suspected) exposure to COVID-19; Z90.49 Acquired absence of other specified parts of digestive tract; N21.0 Calculus in bladder; K63.89 Other specified diseases of intestine; Z96.651 Presence of right artificial knee joint; D75.1 Secondary polycythemia; R74.01 Elevation of levels of liver transaminase levels; D72.829 Elevated white blood cell count, unspecified; Z86.19 Personal history of other infectious and parasitic diseases; K57.90 Diverticulosis of intestine, part unspecified, without perforation or abscess without bleeding; K43.9 Ventral hernia without obstruction or gangrene; A04.72 Enterocolitis due to Clostridium difficile, not specified as recurrent; Z98.1 Arthrodesis status; E29.1 Testicular hypofunction
CPT/HCPCS: 36415; 70030-TC; 83605; 83690; 83735; 84100; 85025; 85305; 85613; 85730; 86625; 87040; 87046; 87086; 93005; A4663; C9113; G0378; J1170; J1200; J1644; J1650; J1885; J2920; J2930; J3370; J3490; J7030; J7040; J7050; Q9967

== ENCOUNTER → 2020-09-01 | Emergency (ER) | payer MEDICARE ==
[~2020-09-01] VITALS: Ht 180.3 cm; Wt 81.6 kg
[~2020-09-01] MED LIST changes: +ACET-2605 PO; +ALPR1TAB2 PO; +ASPIRIN 81 MG TAB.CHEW ONE; +CEFTRIAXONE /D5W 50ML IVPB **ER PYXIS IV ONE; +CEPH500T PO; +HYDR-3980 PO; +IOHEXOL 350 100 ML INFUS..BTL ONE; +IV NORMAL SALINE 250 ML IV ONE; +METH4TAB3 PO; +NITROGLYCERIN OINT 1 GM PACKET TP ONE; +RIVA10TA PO; +SULF1TAB48 PO; +SULFAMETH/TRIMETH 800/160 MG TABLET ONE; +SWABABLE VALVE TRANSFER SET EA MC ONE; -VANC125C2 PO
[2020-09-01] MEDS: ASPIRIN 81 MG TAB.CHEW PO ONE (22:44)
[2020-09-01] MEDS: NITROGLYCERIN OINT 1 GM PACKET TP ONE (22:57)
[2020-09-01] MEDS: CEFTRIAXONE 1 G in IV DEXTROSE 5% 50 ML IV ONE (23:08)
[2020-09-01] MEDS: SULFAMETH/TRIMETH 800/160 MG TABLET PO ONE (23:08)
[2020-09-01 23:15] LABS: POTASSIUM 4.2 mmol/L (3.5-5.1)
[2020-09-01 23:23] LABS: BASOPHILS % (AUTO) 0.3 % (0.0-2.0); EOSINOPHILS # (AUTO) 0.1 K/uL (0.0-0.7); HEMATOCRIT 45.5 % (36.7-47.1); LYMPHOCYTES # (AUTO) 1.7 K/uL (20.0-40.0); LYMPHOCYTES % (AUTO) 13.5 % (20.5-51.5); MEAN CORPUSCULAR HEMOGLOBIN 29.6 uug (23.8-33.4); MEAN CORPUSCULAR HGB CONC 33 g/dL (32.5-36.3); MEAN CORPUSCULAR VOLUME 89.7 fL (73.0-96.2); MONOCYTES # (AUTO) 1.3 K/uL (2.0-10.0); MONOCYTES % (AUTO) 10.6 % (0.0-11.0); NEUTROPHILS # (AUTO) 9.4 K/uL (1.8-8.9); NEUTROPHILS % (AUTO) 74.6 % (38.5-71.5); PLATELET COUNT (AUTO) 225 K/uL (152-348); RED BLOOD CELL COUNT(AUTO) 5.06 MIL/uL (4.06-5.63); WHITE BLOOD COUNT (AUTO) 12.6 K/uL (3.6-10.2)
[2020-09-01 23:28] LABS: BILIRUBIN,DIRECT 0.3 mg/dL (0.0-0.2); BILIRUBIN,TOTAL 1.3 mg/dL (0.2-1.0); TOTAL PROTEIN, SERUM 6.4 g/dL (6.4-8.2)
[2020-09-02 02:35] VITALS: BP 120/69
== END | disposition home or self-care (01) ==
LOC: ER 22:28
DX: R07.9 Chest pain, unspecified (principal); T81.41XA Infection following a procedure, superficial incisional surgical site, initial encounter; L03.311 Cellulitis of abdominal wall; R94.31 Abnormal electrocardiogram [ECG] [EKG]; Z79.01 Long term (current) use of anticoagulants; Z91.013 Allergy to seafood; Z96.651 Presence of right artificial knee joint; Z90.49 Acquired absence of other specified parts of digestive tract; Z88.5 Allergy status to narcotic agent; Z88.8 Allergy status to other drugs, medicaments and biological substances; I81 Portal vein thrombosis
CPT/HCPCS: 36415; 71045; 71275; 74177; 80048; 80076; 83880; 84484; 85025; 85379; 85730; 93005; 96365; 99285; J0696; Q9967; 70030-TC; A4663; J7050

== ENCOUNTER 2021-05-24 21:00 | Emergency (ER) | payer MEDICARE ==
[~2021-05-24] VITALS: Ht 180.3 cm; Wt 83.9 kg
[~2021-05-24 21:00] MED LIST changes: -ASPIRIN 81 MG TAB.CHEW ONE; -CEFTRIAXONE /D5W 50ML IVPB **ER PYXIS IV ONE; -IOHEXOL 350 100 ML INFUS..BTL ONE; -IV NORMAL SALINE 250 ML IV ONE; -NITROGLYCERIN OINT 1 GM PACKET TP ONE; -SULFAMETH/TRIMETH 800/160 MG TABLET ONE; -SWABABLE VALVE TRANSFER SET EA MC ONE
--- NOTE | 2021-05-24 21:27 | NUR ---
Dr Becker into eval patient.
[2021-05-24 22:00] LABS: HEMATOCRIT 44.2 % (36.7-47.1); MEAN CORPUSCULAR HEMOGLOBIN 29.7 uug (23.8-33.4); MEAN CORPUSCULAR VOLUME 87.4 fL (73.0-96.2); PLATELET COUNT (AUTO) 148 K/uL (152-348)
[2021-05-24 22:03] LABS: CREATININE 1.1 mg/dL (0.6-1.3); POTASSIUM 3.7 mmol/L (3.5-5.1)
[2021-05-24 22:08] LABS: BILIRUBIN,DIRECT 0.1 mg/dL (0.0-0.2); TOTAL PROTEIN, SERUM 6.9 g/dL (6.4-8.2)
--- NOTE | 2021-05-24 22:57 | NUR ---
Patient discharged to home in stable condition. Written and verbal after care instructions given. Patient verbalizes understanding of instructions. Stressed follow up or return to ER for worsening s/s.
[2021-05-24 22:59] VITALS: BP 118/80
[2021-05-25 12:32] LABS: BAND % (MANUAL) 1 % (0-10); EOSINOPHILS % (MANUAL) 0 % (0-8); LYMPHOCYTES % (MANUAL) 31 % (20-40); MONOCYTES % (MANUAL) 8 % (2-10); NEUTROPHILS % (MANUAL) 60 % (42-75)
== END 2021-05-24 23:00 | disposition home or self-care (01) ==
LOC: ER 21:07
DX: J06.9 Acute upper respiratory infection, unspecified (principal); D72.819 Decreased white blood cell count, unspecified; Z20.822 Contact with and (suspected) exposure to COVID-19; Z88.6 Allergy status to analgesic agent; Z79.899 Other long term (current) drug therapy
CPT/HCPCS: 36415; 70030-TC; 83605; 85025; 86403; 87040; 87070; 87400; A4663

== ENCOUNTER 2025-02-21 18:52 | Emergency (ER) | payer MEDICARE, OTHER ==
[~2025-02-21] VITALS: Ht 180.3 cm; Wt 74.8 kg
[2025-02-21 19:00] VITALS: BP 140/80
[2025-02-21] MEDS ORDERED: SODIUM BICARBONATE 4.2 % (NEUT) 5 ML VIAL ONE (19:15)
[2025-02-21] MEDS ORDERED: LIDOCAINE 1%-EPI 1:100,000 20 ML VIAL ONE (19:15)
[2025-02-21] MEDS ORDERED: TDAP DIPH,PERTUSS,TET VAC/PF 0.5 ML DISP.SYRIN IM ONE (19:22)
[2025-02-21] MEDS: LIDOCAINE 1%-EPI 1:100,000 20 ML VIAL IJ ONE (19:43)
[2025-02-21] MEDS: SODIUM BICARBONATE 4.2 % (NEUT) 5 ML VIAL TP ONE (19:43)
[2025-02-21] MEDS: TDAP DIPH,PERTUSS,TET VAC/PF 0.5 ML DISP.SYRIN IM ONE (19:44)
[2025-02-21 20:14] VITALS: BP 135/76; O2SAT 97
== END 2025-02-21 20:09 | disposition home or self-care (01) ==
LOC: ER 18:59
DX: S81.812A Laceration without foreign body, left lower leg, initial encounter (principal); S80.12XA Contusion of left lower leg, initial encounter; G89.29 Other chronic pain; Z79.01 Long term (current) use of anticoagulants; Z88.5 Allergy status to narcotic agent; Z88.7 Allergy status to serum and vaccine; Z90.49 Acquired absence of other specified parts of digestive tract; Z98.1 Arthrodesis status; W26.9XXA Contact with unspecified sharp object(s), initial encounter; Y93.89 Activity, other specified; Y92.89 Other specified places as the place of occurrence of the external cause; Y99.8 Other external cause status
CPT/HCPCS: 12002; 73590; 90471; 90715; 96372; 99284; J0696; J3490; A4606; A4663